=== PATIENT | male | born 1945 | race Caucasian/White ===

== ENCOUNTER → 2019-08-29 | Outpatient (CLI) | payer OTHER | LOC: SJCVC 14:00 | DX: R07.9 Chest pain, unspecified (principal); R09.89 Other specified symptoms and signs involving the circulatory and respiratory systems; E78.5 Hyperlipidemia, unspecified; Z79.899 Other long term (current) drug therapy; Z87.891 Personal history of nicotine dependence; Z82.49 Family history of ischemic heart disease and other diseases of the circulatory system ==

== ENCOUNTER → 2019-08-29 | Outpatient (CLI) | payer OTHER | LOC: LAB 10:15 | DX: R07.9 Chest pain, unspecified (principal); E78.5 Hyperlipidemia, unspecified ==

== ENCOUNTER → 2019-08-30 | Outpatient (CLI) | payer OTHER | LOC: CAT 10:09 | DX: Z13.6 Encounter for screening for cardiovascular disorders (principal); I25.10 Atherosclerotic heart disease of native coronary artery without angina pectoris; E78.00 Pure hypercholesterolemia, unspecified ==

== ENCOUNTER → 2019-08-30 | Outpatient (CLI) | payer OTHER | LOC: SJCVCIMAG 07:53 | DX: I65.23 Occlusion and stenosis of bilateral carotid arteries (principal); I10 Essential (primary) hypertension; E78.5 Hyperlipidemia, unspecified; Z87.891 Personal history of nicotine dependence ==

== ENCOUNTER → 2020-01-29 | Outpatient (CLI) | payer OTHER | LOC: LAB 11:16 | PROVIDERS: ATTEND Specialist | DX: Z01.812 Encounter for preprocedural laboratory examination (principal); Z20.828 Contact with and (suspected) exposure to other viral communicable diseases ==

== ENCOUNTER → 2020-02-02 | Outpatient (CLI) | payer OTHER ==
[~2020-02-02] VITALS: Ht 177.8 cm; Wt 77.1 kg
[~2020-02-02] MED LIST: ASA81BEC PO; ROSUVASTATIN CA20 MG PO
--- NOTE | 2020-02-04 10:20 | P ---
[facility] [place] [address] PROCEDURE REPORT Name: MANPREET BUCHANAN Room #: REG Zee Gentile#: [id number] Admission: 02/02/20 Attend Phys: Ariel Garcia Discharge: Date of : 47 Report #: [id number] THIS REPORT FOR: cc: Christian Rome MD, Mark A. MD McElhinney, Christian C. MD ~ CC: Ariel Rome DATE OF SERVICE: 02/02/2020 PROCEDURE PERFORMED: Colonoscopy. HISTORY OF PRESENT ILLNESS: The patient is a 74-year-old male who presents today for screening colonoscopy. He has a family history of colon cancer in his father. The patient had an episode of diverticulitis, which was the second episode in October of this year, treated with Cipro and Flagyl. Pain essentially resolved, but he does have mild intermittent abdominal pain. DESCRIPTION OF PROCEDURE: The risks and benefits of the procedure were explained to the patient, those risks including but not limited to bleeding, perforation and the risk of sedation. He understood these risks and gave informed consent. Sedation was given using propofol per anesthesia. Next, a digital rectal exam was initially performed, which was normal. Next, using a standard Olympus colonoscope, the scope was placed in the patient's anus and advanced under direct vision to the cecum. The overall prep was excellent. The cecum and ileocecal valve were normal in appearance. Throughout the ascending, transverse, descending and sigmoid colon were multiple diverticula. No evidence of inflammation, otherwise normal. The rectal mucosa was normal. On retroflexion, small nonbleeding internal hemorrhoids were noted. The scope was then withdrawn and the procedure terminated. The patient tolerated the procedure well. IMPRESSION: 1. Pandiverticulosis, no evidence of inflammation. 2. Small internal hemorrhoids. 3. Otherwise, normal colonoscopy. RECOMMENDATIONS: 1. Repeat colonoscopy in 5 years. 2. A script was given today for Levsin to be used on a p.r.n. basis. [facility] [address] [place] [address] PROCEDURE REPORT Name: MANPREET BUCHANAN Room #: REG MANN Gentile#: [id number] Admission: 02/02/20 Attend Phys: Ariel Garcia Discharge: Date of : 47 Report #: [id number] Thank you for allowing me to participate in his care. <ELECTRONICALLY SIGNED> By: Ariel Abebe MD 02/04/20 1020 [id number] Ariel Abebe MD /nt
== END | disposition home or self-care (01) ==
LOC: GI 07:53
PROVIDERS: ATTEND Specialist
DX: R10.9 Unspecified abdominal pain (principal); K57.90 Diverticulosis of intestine, part unspecified, without perforation or abscess without bleeding; K64.8 Other hemorrhoids; K21.9 Gastro-esophageal reflux disease without esophagitis; E78.00 Pure hypercholesterolemia, unspecified; Z80.0 Family history of malignant neoplasm of digestive organs; Z79.899 Other long term (current) drug therapy; Z98.890 Other specified postprocedural states; Z87.891 Personal history of nicotine dependence; Z90.49 Acquired absence of other specified parts of digestive tract; Z79.82 Long term (current) use of aspirin
CPT/HCPCS: 62110; 62900

== ENCOUNTER → 2020-09-02 | Outpatient (CLI) | payer OTHER | LOC: SJCVC 09:58 | PROVIDERS: ATTEND Internal Medicine Cardiovascular Disease | DX: R93.1 Abnormal findings on diagnostic imaging of heart and coronary circulation (principal); E78.5 Hyperlipidemia, unspecified; E78.00 Pure hypercholesterolemia, unspecified; I10 Essential (primary) hypertension; I25.10 Atherosclerotic heart disease of native coronary artery without angina pectoris; I65.23 Occlusion and stenosis of bilateral carotid arteries; Z87.891 Personal history of nicotine dependence; Z72.89 Other problems related to lifestyle; Z79.82 Long term (current) use of aspirin; Z79.899 Other long term (current) drug therapy; Z82.49 Family history of ischemic heart disease and other diseases of the circulatory system ==

== ENCOUNTER → 2020-12-10 | Outpatient (CLI) | payer OTHER | LOC: SJCVCIMAG 09:13 | PROVIDERS: ATTEND Internal Medicine Cardiovascular Disease | DX: I25.10 Atherosclerotic heart disease of native coronary artery without angina pectoris (principal); E78.5 Hyperlipidemia, unspecified; I10 Essential (primary) hypertension; R53.83 Other fatigue ==

== ENCOUNTER → 2021-02-18 | Outpatient (CLI) | payer OTHER | LOC: CAT 09:27 | PROVIDERS: ATTEND Internal Medicine | DX: J34.89 Other specified disorders of nose and nasal sinuses (principal); R51.9 Headache, unspecified ==

== ENCOUNTER → 2021-03-05 | Outpatient (CLI) | payer OTHER | LOC: MRI 08:25 | PROVIDERS: ATTEND Internal Medicine | DX: G44.52 New daily persistent headache (NDPH) (principal) ==